=== PATIENT | male | born 1965 | race Caucasian/White ===

== ENCOUNTER 2019-09-22 19:50 | Emergency (ER) | payer SELFPAY ==
[~2019-09-22] VITALS: Ht 180.3 cm; Wt 93.8 kg
--- NOTE | 2019-09-22 19:59 | NUR ---
JANNETTE-FRIEND WAITING IN PARKING LOT [phone]
[2019-09-22] MEDS ORDERED: EPINEPHRINE 1 MG/ML, 1ML SQ ONE (20:30)
--- NOTE | 2019-09-22 20:37 | NUR ---
this tech triaged/roomed pt
[2019-09-22] MEDS ORDERED: EPINEPHRINE 1 MG/ML, 1ML ONE (20:45)
[2019-09-22 20:55] VITALS: BP 132/67
--- NOTE | 2019-09-22 20:57 | NUR ---
PT MEDICATED PER EMAR.
--- NOTE | 2019-09-22 21:09 | NUR ---
Patient given discharge instructions and they have confirmed that they understand the instructions. Patient ambulatory with steady gait.
== END 2019-09-22 21:10 | disposition home or self-care (01) ==
LOC: ED 20:20
DX: L50.9 Urticaria, unspecified (principal); F17.210 Nicotine dependence, cigarettes, uncomplicated
CPT/HCPCS: 96372; 99283; J0171; J7512

== ENCOUNTER 2019-09-23 00:22 | Emergency (ER) | payer SELFPAY ==
[~2019-09-23] VITALS: Ht 180.3 cm; Wt 93.0 kg
[2019-09-23] MEDS ORDERED: EPINEPHRINE SYRINGE 0.1 MG/ML, 10ML ONE (00:51)
[2019-09-23] MEDS ORDERED: DIPHENHYDRAMINE 50 MG CAPSULE ONE (00:51)
[2019-09-23] MEDS ORDERED: FAMOTIDINE 20 MG TABLET ONE (00:51)
[2019-09-23] MEDS ORDERED: FAMOTIDINE 20 MG/2 ML IVPush ONE (01:00)
[2019-09-23] MEDS ORDERED: DIPHENHYDRAMINE 50 MG/ML, 1ML IVPush ONE (01:00)
[2019-09-23] MEDS ORDERED: EPINEPHRINE 1 MG/ML, 1ML SQ ONE (01:00)
[2019-09-23 01:07] VITALS: BP 143/68
--- NOTE | 2019-09-23 01:12 | NUR ---
pT ARRIVES TO ED COVERED IN HIVES, REPORTS HE WAS SEEN HERE EARLIER AND IS NOT SURE WHAT HE IS ALLERGIC TO. PT HAD PIV PLACED AND MEDICATED PER EMAR. PT HAS PATENT AIRWAY AND NO STRIDOR OR DISRESS NOTED. PT PLACED ON CARDIAC, BP, SPO2 FOR CONTROLLED MONITORING AFTER EPI SUBCUT.
--- NOTE | 2019-09-23 01:16 | NUR ---
Hives have resolved.
[2019-09-23 01:20] LABS: BASOPHILS % (AUTO) 0 % (0-1); EOSINOPHILS # (AUTO) 0.01 x10^3/uL (0-0.4); EOSINOPHILS % (AUTO) 0 % (1-7); LYMPHOCYTES # (AUTO) 0.75 x10^3/uL (1-3.4); LYMPHOCYTES % (AUTO) 5 % (22-44); MD NO; MEAN CORPUSCULAR HEMOGLOBIN 30.9 pg (27.5-34.5); MEAN CORPUSCULAR HGB CONC 33.1 g/dL (33.2-36.2); MEAN CORPUSCULAR VOLUME 93.5 fL (81-97); MEAN PLATELET VOLUME 7.9 fL (7.4-10.4); MONOCYTES # (AUTO) 0.06 x10^3/uL (0.2-0.8); MONOCYTES % (AUTO) 0 % (2-9); NEUTROPHILS # (AUTO) 13.27 x10^3/uL (1.8-6.8); NEUTROPHILS % (AUTO) 94 % (42-75); PLATELET COUNT 375 x10^3/uL (130-400); RED BLOOD COUNT 4.75 x10^6/uL (4.38-5.82); RED CELL DISTRIBUTION WIDTH 13.4 % (9.4-14.8)
[2019-09-23 01:30] LABS: ANION GAP 5 mmol/L (5-15); CALCIUM 8.4 mg/dL (8.5-10.1); CHLORIDE 107 mmol/L (98-107); CREATININE 0.97 mg/dL (0.7-1.3)
[2019-09-23] MEDS ORDERED: DIPHENHYDRAMINE 50 MG CAPSULE PO ONE (01:30)
[2019-09-23] MEDS ORDERED: DIPHENHYDRAMINE 25 MG CAPSULE PO ONE (01:30)
[2019-09-23] MEDS ORDERED: FAMOTIDINE 20 MG TABLET PO ONE (01:30)
--- NOTE | 2019-09-23 01:54 | NUR ---
Patient/Caregiver given discharge instructions and they have confirmed that they understand the instructions. Patient ambulatory with steady gait.
== END 2019-09-23 01:55 | disposition home or self-care (01) ==
LOC: ED 00:51
DX: L50.9 Urticaria, unspecified (principal); F17.200 Nicotine dependence, unspecified, uncomplicated
CPT/HCPCS: 36415; 80048; 85025; 96372; 99283; J0171; Q0163; J1200; J3490